=== PATIENT | female | born 1995 | race Caucasian/White ===

== ENCOUNTER 2017-06-13 12:49 | Outpatient (CLI) | payer OTHER ==
--- NOTE | 2017-06-13 14:29 | ULT ---
THYROID ULTRASOUND: CLINICAL HISTORY: Thyroid nodule. COMPARISON: Reference is made to a CT exam of 06/02/17. FINDINGS: Right thyroid lobe and left thyroid lobe demonstrate a length of 4.6 cm. There is mild thickening of the isthmus at 4 mm. Within the left thyroid lobe, there is a complex, predominantly solid nodule, oval in shape measuring up to 2.6 cm. This demonstrates prominent internal vascularity by Doppler as sessment. There is a punctate cyst of the right thyroid lobe too small to further characterize. IMPRESSION: Dominant, complex, predominantly solid left thyroid lobe nodule. This would be amenable to fine need le aspirate as clinically warranted. POS: [facility]
== END 2017-06-13 12:50 | disposition home or self-care (01) ==
LOC: SCSULT 12:49
PROVIDERS: ATTEND Family Medicine
DX: E04.1 Nontoxic single thyroid nodule (principal)
CPT/HCPCS: 76536